=== PATIENT | male | born 1985 | race Caucasian/White ===

== ENCOUNTER 2018-02-19 03:31 | Observation (INO) | payer OTHER ==
[2018-02-19] MEDS ORDERED: CEFAZOLIN 1 GM/D5W RTU 1 GM/50 ML RTUPB IV ONE (04:30)
[2018-02-19] MEDS: DEXTROSE 5%-LACTATED RINGERS 1,000 ML IV PRN ×3 (04:40→20:30)
[2018-02-19] MEDS ORDERED: FENTANYL CITRATE INJ/PF 250 MCG/5 ML AMPULE ONE (05:25)
[2018-02-19] MEDS ORDERED: DEXAMETHASONE SOD PHOSPHATE INJ 4 MG/1 ML VIAL ONE (05:26)
[2018-02-19] MEDS ORDERED: MIDAZOLAM 2 MG/2 ML INJ ONE (05:26)
[2018-02-19] MEDS ORDERED: PROPOFOL INJ 200 MG/20 ML VIAL IV ONE (05:26)
[2018-02-19] MEDS ORDERED: ACETAMINOPHEN 1,000 MG/100 ML RTUPB IV ONE (05:26)
[2018-02-19] MEDS ORDERED: ONDANSETRON HCL INJ/PF 4 MG/2 ML SDV ONE (05:26)
[2018-02-19] MEDS ORDERED: BUPIVACAINE HCL 0.5 % INJ/PF 30 ML SDV ONE (05:30)
--- NOTE | 2018-02-19 05:48 | PDOC H&P ---
History of Present Illness Admission Date/PCP: 02/19/18 03:31 Patient complains of: Abdominal pain History of Present Illness: DAFNE MICHELLE is a 32 year old male Who presents to the emergency department at [facility] in [place] complaining of a 2 day history of abdominal pain localized to the right lower quadrant associated with nausea,anorexia and some loose stool. He denies history of previous episodes, history of trauma or association with anybody else with similar symptoms. The patient was evaluated in the emergency department and found to have right lower quadrant tenderness, and a leukocytosis of 21,000. CT scan of the abdomen and pelvis was performed last night which showed findings consistent with acute appendicitis without rupture. General surgery was consulted the patient was being taken to the operating room it was determined by administration the patient was 100% medically disabled , [facility] the [facility], and could not be operated on for economic reasons at [facility]. Patient was then transferred [facility], accepted by Dr. Xie, and arrangements were made for the operation to be performed at [facility] Past Medical History Past Medical History: Nephrolithiasis, history of renal stents, history of ADD age, hypertension, corneal abrasion Cardiac Medical History: Denies: Congestive Heart Failure, Myocardial Infarction, Hypertension Pulmonary Medical History: Denies: Asthma, Bronchitis, Chronic Obstructive Pulmonary Disease (COPD), Pneumonia, Tuberculosis Neurological Medical History: Denies: Seizures Renal/ Medical History: Denies: End Stage Renal Disease GI Medical History: Reports: Gastroesophageal Reflux Disease Denies: Cirrhosis Musculoskeltal Medical History: Reports: Arthritis - osteo Psychiatric Medical History: Reports: Depression Denies: Bipolar Disorder Hematology: Denies: Anemia, Bleeding Tendencies Past Surgical History Past Surgical History: History of colonoscopy, back surgery, left ureteral stent Social History Smoking Status: Current Every Day Smoker Hx Recreational Drug Use: No Drugs: None - Advance Directive Resuscitation Status: Full Code Family History Parental Family History Reviewed: Yes Children Family History Reviewed: Yes Sibling(s) Family History Reviewed.: Yes Medication/Allergy Allergies/Adverse Reactions: No Known Allergies Allergy (Unverified 02/19/18 04:41) Review of Systems Constitutional: PRESENT: as per HPI Eyes: ABSENT: visual disturbances Ears: ABSENT: hearing changes Cardiovascular: ABSENT: chest pain, dyspnea on exertion, edema, orthropnea, palpitations Respiratory: ABSENT: cough, hemoptysis Gastrointestinal: PRESENT: as per HPI Musculoskeletal: PRESENT: other - Chronic back ailments Endocrine: ABSENT: cold intolerance, heat intolerance, polydipsia, polyuria Physical Exam Vital Signs: Temp Pulse Resp BP Pulse Ox 99.0 F 74 20 126/89 H 97 02/19/18 03:47 02/19/18 03:47 02/19/18 03:47 02/19/18 03:47 02/19/18 03:47 General appearance: PRESENT: no acute distress Head exam: PRESENT: normocephalic Eye exam: PRESENT: EOMI Mouth exam: PRESENT: dry mucosa Neck exam: PRESENT: full ROM Respiratory exam: PRESENT: clear to auscultation angel Cardiovascular exam: PRESENT: RRR Pulses: PRESENT: normal carotid pulses, normal radial pulses, normal dorsalis pedis pul. ABSENT: normal femoral pulses GI/Abdominal exam: PRESENT: guarding, other - Exquisite tenderness right lower quadrant with guarding Rectal exam: PRESENT: deferred Extremities exam: PRESENT: full ROM Musculoskeletal exam: PRESENT: full ROM Neurological exam: PRESENT: alert, awake, oriented to person, oriented to place , oriented to time, oriented to situation Psychiatric exam: PRESENT: appropriate affect Assessment & Plan - Diagnosis (1) Acute appendicitis Is this a current diagnosis for this admission?: Yes Plan: Impression: Acute appendicitis in medically disabled 32-year-old male Recommendations: 1. Admit, IV fluids, IV antibiotics 2. Proceed with laparoscopic, possible open appendectomy, 1 hour, [facility], general anesthesia; risk benefits of the planned procedure explained to the patient including bleeding, infection, need for additional surgery, need for drain, injury to internal organs. (2) Hypertension Is this a current diagnosis for this admission?: Yes (3) ADD (attention deficit disorder) Is this a current diagnosis for this admission?: Yes (4) Previous back surgery Is this a current diagnosis for this admission?: Yes (5) Ureteral stent displacement Is this a current diagnosis for this admission?: Yes - Time Time Spent: 50 to 70 Minutes Critical Time spent with patient: 15-24 minutes Medications reviewed and adjusted accordingly: Yes Anticipated discharge: Home - Inpatient Certification Based on my medical assessment, after consideration of the patient's comorbidities, presenting symptoms, or acuity I expect that the services needed warrant INPATIENT care.: Yes I certify that my determination is in accordance with my understanding of Medicare's requirements for reasonable and necessary INPATIENT services [42 CFR 412.3e].: Yes Medical Necessity: Need For IV Fluids, Need for Pain Control, Need for IV Antibiotics, Need for Surgery
[2018-02-19] MEDS ORDERED: FENTANYL CITRATE INJ/PF 100 MCG/2 ML AMPUL IV PRN ×3 (06:17)
[2018-02-19] MEDS ORDERED: DIPHENHYDRAMINE HCL 50 MG/ML VIAL IV PRN (06:17)
[2018-02-19] MEDS ORDERED: PROMETHAZINE HCL INJ 25 MG/1 ML VIAL IV PRN ×2 (06:17)
[2018-02-19] MEDS ORDERED: OXYCODONE-ACETAMINOPHEN 5-325 MG TABLET PO PRN ×3 (06:17→06:55)
[2018-02-19] MEDS ORDERED: MEPERIDINE HCL/PF INJ 25 MG/1 ML DISP.SYRIN IV PRN (06:17)
[2018-02-19] MEDS ORDERED: MORPHINE SULFATE 10 MG/ML INJ IV PRN (06:17)
[2018-02-19] MEDS: FENTANYL CITRATE INJ/PF 100 MCG/2 ML AMPUL ONE ×2 (06:45→06:50)
[2018-02-19] MEDS ORDERED: ONDANSETRON HCL INJ/PF 4 MG/2 ML SDV IV PRN (06:55)
--- NOTE | 2018-02-19 07:00 | Operative Report ---
Operative Report DATE OF SURGERY: 02/19/18 PREOPERATIVE DIAGNOSIS: Acute appendicitis POSTOPERATIVE DIAGNOSIS: Same OPERATION: Laparoscopic appendectomy SURGEON: MALICK REED ANESTHESIA: GA TISSUE REMOVED OR ALTERED: Appendix COMPLICATIONS: No complications ESTIMATED BLOOD LOSS: Scant INTRAOPERATIVE FINDINGS: Below PROCEDURE: Patient was taken to the preop holding area the main operating where general anesthesia was used. Patient had voided prior to the induction of anesthesia. The abdomen was exposed, prepped draped sterile fashion. Surgical plan surgical timeout conducted Instrumentation was set up for laparoscopic appendectomy. Skin was anesthetized for 3 port approach. A supraumbilical vertical incision was made with a 15 blade, Veress needle inserted the peritoneal cavity pneumoperitoneum was established. Veress needle was removed, 5 mm ports inserted a 5 mm flexible scope was inserted. Under direct visualization 2 additional ports were placed one 5 mm suprapubic position and a 12 mm left lower quadrant. Findings were significant for an acute, retrocecal appendix without perforation. Photos were taken. Grasper was placed on the appendix, and the attachment between the lateral pelvic wall and the appendix opened up with scissors and electrocautery. The mesoappendix was taken down with electrocautery. The appendix was suspended at its base. Photos were taken. The appendix was amputated with a single firing of a 35 mm Endo ABEL blue load stapler. Tenex was removed from the patient to the left lower quadrant 12 mm port. We returned the peritoneal cavity checked for bleeding there was none. Sponge and needle counts were correct. All ports removed under direct visualization, pneumoperitoneum evacuated, and wounds closed with 0 Vicryl 3-0 Vicryl benzoin and Steri-Strips. Patient tolerated the procedure well, extubated, taken recovery room in stable condition.
[2018-02-19] MEDS ORDERED: NEOSTIGMINE METHYLSULFATE 10 MG/10 ML VIAL ONE (09:55)
[2018-02-19] MEDS ORDERED: SUCCINYLCHOLINE CHLORIDE INJ 200 MG/10 ML VIAL ONE (09:55)
[2018-02-19] MEDS ORDERED: GLYCOPYRROLATE 1 MG/5 ML SYRINGE ONE (09:55)
[2018-02-19] MEDS ORDERED: ROCURONIUM BROMIDE INJ 50 MG/5 ML VIAL IV ONE (09:55)
[2018-02-19] MEDS ORDERED: OXYCODONE-ACETAMINOPHEN 5-325 MG TABLET ONE (14:01)
[2018-02-19] MEDS: CEFAZOLIN 2 GM/D5W RTU 2 GM/50 ML RTUPB IV SCH ×2 (14:09→22:25)
[2018-02-19] MEDS: NAPROXEN 250 MG TABLET PO SCH (15:34)
[2018-02-19] MEDS: FAMOTIDINE INJ/PF 20 MG/2 ML SDV IV SCH (15:39)
[2018-02-19] MEDS ORDERED: ACETAMINOPHEN 325 MG TABLET ONE (16:59)
[2018-02-19] MEDS: ACETAMINOPHEN 325 MG TABLET PO SCH (17:20)
[2018-02-20] MEDS: ACETAMINOPHEN 325 MG TABLET PO SCH ×2 (00:06→06:02)
[2018-02-20] MEDS ORDERED: ENOXAPARIN SODIUM INJ 40 MG/0.4 ML DISP.SYRIN SUBCUT SCH (06:00)
[2018-02-20] MEDS: CEFAZOLIN 2 GM/D5W RTU 2 GM/50 ML RTUPB IV SCH (06:02)
[2018-02-20] MEDS: NAPROXEN 250 MG TABLET PO SCH (08:38)
[2018-02-20] MEDS: FAMOTIDINE INJ/PF 20 MG/2 ML SDV IV SCH (09:21)
--- NOTE | 2018-02-20 10:21 | PDOC PROGRESS REPORT ---
Subjective Progress Note for:: 02/20/18 Subjective:: no c/o Reason For Visit: APPENDICITIS Physical Exam Vital Signs: Temp Pulse Resp BP Pulse Ox 98.1 F 57 L 20 124/75 98 02/20/18 09:00 02/20/18 09:00 02/20/18 09:00 02/20/18 09:00 02/20/18 09:00 Intake & Output 02/19/18 02/20/18 02/21/18 06:59 06:59 06:59 Intake Total 1240 4610 50 Output Total 240 2300 Balance 1000 2310 50 Weight 103.9 kg General appearance: PRESENT: no acute distress Respiratory exam: PRESENT: clear to auscultation angel Cardiovascular exam: PRESENT: RRR GI/Abdominal exam: PRESENT: soft, other - all incisions are c/d/i Assessment & Plan - Diagnosis (1) Acute appendicitis Is this a current diagnosis for this admission?: Yes - Plan Summary Plan Summary: A/ POD#1 after lap appy VSS, AF patient tolerating po well PE unremarkable P/ resume diet and all activities without limitations shower only x 2 weeks, than can bathe no wound care needed Tylenol and Aleve as needed OTC for pain Ice pack to wounds prn pain F/u in the Surgery office with BARBIE Radford in 2 weeks
[2018-02-20 10:25] VITALS: BP 112/70
--- NOTE | 2018-02-20 10:50 | DISCHARGE SUMMARY E ---
Discharge Summary NAME: DAFNE MICHELLE : 1985 AGE: 32Y ADMITTED: 02/19/2018 DISCHARGED: 02/20/2018 FINAL DIAGNOSIS: Acute appendicitis, not perforated. PROCEDURE: On February 19 the patient underwent laparoscopic appendectomy. COMPLICATIONS: None. HOSPITAL COURSE: This is a healthy 32-year-old male who presented to the Emergency Room with right upper quadrant pain and found to have an acute appendicitis. The patient underwent a laparoscopic appendectomy on February 19. The procedure was uneventful. He was, therefore, admitted postoperatively. His vital signs remained stable. His diet was advanced to regular and tolerated. His physical exam was unremarkable. On the day of discharge the patient presented with no complaints. Physical exam was unremarkable. Vital signs were within normal limits. All incisions were clean, dry, and intact. DISCHARGE ORDERS: The patient was discharged to home on February 20. He was given a follow-up appointment in the surgery clinic in 2 weeks with the BARBIE Banks. He was given Tylenol and Aleve as needed over the counter for pain, ice packs to the painful abdominal wounds on and off p.r.n. for pain. Activities and diet as tolerated without restrictions. Patient was instructed to shower only for 2 weeks and he can take a bath afterward. DICTATING PHYSICIAN: CHARLOTTE DON M.D. [id number] PHY#: [id number] ID: [id number] JOB#: [id number] ACCT: [id number] cc:CHARLOTTE DON M.D. > MTDD
== END 2018-02-20 10:51 | disposition home or self-care (01) ==
LOC: 2N 03:31
PROVIDERS: ATTEND Surgery
PROC: 0DTJ4ZZ Resection of Appendix, Percutaneous Endoscopic Approach (ICD-10-PCS; principal; 2018-02-19 06:00)
DX: K35.80 Unspecified acute appendicitis (principal); F17.200 Nicotine dependence, unspecified, uncomplicated; I10 Essential (primary) hypertension; F98.8 Other specified behavioral and emotional disorders with onset usually occurring in childhood and adolescence; T83.123A Displacement of other urinary stents, initial encounter; Z98.890 Other specified postprocedural states; Z87.442 Personal history of urinary calculi
CPT/HCPCS: 44970; G0378 ×2; G0379; J2250; J3490 ×3; J0690 ×3; J1100; J3010 ×2; J0330; J2405; J2704; S0028 ×2; J0131; 840

== ENCOUNTER 2019-03-08 18:49 | Emergency (ER) | payer OTHER ==
--- NOTE | 2019-03-08 19:44 | EKG REPORT ---
SEVERITY:- NORMAL ECG - SINUS RHYTHM : Confirmed by: Jayla Scott MD 08-Mar-2019 19:44:02
--- NOTE | 2019-03-08 20:23 | ER Document Report ---
ED Medical Screen (RME) - General Chief Complaint: Chest Pain Stated Complaint: CHEST PAIN Time Seen by Provider: 03/08/19 20:14 Notes: Patient is a 33-year-old male with a history of fibromyalgia, chronic leg and back pain, acid reflux who presents to the emergency department with a chief complaint of chest pain. Patient states he has had intermittent chest pain for the past few years. Patient reports today around noon he had pain located in the center of his chest that was a constant aching. Patient reports that this was different from his normal. Patient states in the past he has been worked up for heart problems but was told that it was acid reflux. Patient reports he does have a history of acid reflux and that this does not feel the same. Patient reports he only takes acid reflux medications as needed. Patient reports he has felt lightheaded and dizzy. Patient reports he is also had trouble sleeping and has been having more frequent nightmares and sweating at night. Patient reports he does have a history of depression and anxiety but is not currently taking medications. Patient reports he is very sensitive to heat and as soon as he steps outside he begins to profusely sweat. Patient reports that at times he will go throughout the whole day without urinating. TRAVEL OUTSIDE OF THE [place] IN LAST 30 DAYS: No - Related Data Allergies/Adverse Reactions: No Known Allergies Allergy (Unverified 02/19/18 04:41) Past Medical History - Past Medical History Cardiac Medical History: Denies: Hx Congestive Heart Failure, Hx Heart Attack, Hx Hypertension Pulmonary Medical History: Denies: Hx Asthma, Hx Bronchitis, Hx COPD, Hx Pneumonia, Hx Tuberculosis Neurological Medical History: Denies: Hx Seizures Renal/ Medical History: Reports: Hx Kidney Stones - twice 2016 & 2017. Denies: Hx Benign Prostatic Hyperplasia, Hx End Stage Renal Disease GI Medical History: Reports: Hx Gastroesophageal Reflux Disease. Denies: Hx Cirrhosis, Hx Ulcer Musculoskeltal Medical History: Reports Hx Arthritis - osteo, Denies Hx Multiple Sclerosis Psychiatric Medical History: Reports: Hx Depression Denies: Hx Bipolar Disorder, Hx Schizophrenia - Immunizations History of Influenza Vaccine for 03/2017 - 08/2017 Season: Yes Influenza Administration Date for 03/2017 - 08/2017 Season: 03/25/17 Physical Exam - Vital signs Vitals: Temp Pulse Resp BP Pulse Ox 98.9 F 83 16 153/88 H 97 03/08/19 19:11 03/08/19 19:11 03/08/19 19:11 03/08/19 19:11 03/08/19 19:11 - Respiratory Respiratory status: No respiratory distress Chest status: Nontender Breath sounds: Normal Chest palpation: Normal - Cardiovascular Rhythm: Regular Heart sounds: Normal auscultation, S1 appreciated, S2 appreciated Course - Re-evaluation Re-evalutation: 03/08/19 20:23 I have greeted and performed a rapid initial assessment of this patient. A comprehensive ED assessment and evaluation of the patient, analysis of test results and completion of the medical decision making process will be conducted by additional ED providers. - Vital Signs Vital signs: Temp Pulse Resp BP Pulse Ox 98.9 F 83 16 153/88 H 97 03/08/19 19:11 03/08/19 19:11 03/08/19 19:11 03/08/19 19:11 03/08/19 19:11
[2019-03-08 21:05] LABS: ABSOLUTE BASOPHILS # (AUTO) 0.1 10^3/uL (0.0-0.2); ABSOLUTE EOSINOPHILS # (AUTO) 0.3 10^3/uL (0.0-0.6); ABSOLUTE LYMPHOCYTES (AUTO) 3.3 10^3/uL (0.5-4.7); ABSOLUTE MONOCYTES (AUTO) 0.8 10^3/uL (0.1-1.4); ABSOLUTE NEUT (AUTO) 6.6 10^3/uL (1.7-8.2); BASOPHILS % (AUTO) 0.7 % (0-2); EOSINOPHILS % (AUTO) 2.9 % (0-6); HEMATOCRIT 50.2 % (37.9-51.0); HEMOGLOBIN 17.6 g/dL (13.5-17.0); LYMPHOCYTES % (AUTO) 29.8 % (13-45); MEAN CORPUSCULAR HEMOGLOBIN 31.4 pg (27.0-33.4); MEAN CORPUSCULAR HGB CONC 35.1 g/dL (32.0-36.0); MEAN CORPUSCULAR VOLUME 89 fl (80-97); PLATELET COUNT 274 10^3/uL (150-450); RED BLOOD COUNT 5.62 10^6/uL (4.35-5.55); RED CELL DISTRIBUTION WIDTH 12.9 % (11.5-14.0); SEGMENTED NEUTROPHILS % (AUTO) 59.6 % (42-78); TOTAL CELLS COUNTED % (AUTO) 100 %; WHITE BLOOD COUNT 11.1 10^3/uL (4.0-10.5)
[2019-03-08 21:15] LABS: APPEARANCE,URINE CLEAR; BILIRUBIN,URINE NEGATIVE (NEGATIVE); COLOR,URINE AMBER; GLUCOSE, URINE NEGATIVE (NEGATIVE); KETONES,URINE NEGATIVE (NEGATIVE); LEUKOCYTE ESTERASE,URINE NEGATIVE (NEGATIVE); NITRITE,URINE NEGATIVE (NEGATIVE); PROTEIN,URINE 30 mg/dL (NEGATIVE); URINE SPECIFIC GRAVITY 1.029
--- NOTE | 2019-03-08 21:24 | RADIOLOGY REPORT (SQ) ---
XR CHEST 2 VIEWS EXAM DATE: 03/08/2019 8:21 PM CDT HISTORY: Chest pain. COMPARISON: None. FINDINGS: The heart size is within normal limits. No consolidation, pleural effusion, or pneumothorax is seen. The bony thorax is intact. IMPRESSION: No evidence of acute cardiopulmonary disease.
[2019-03-08 21:27] LABS: ALBUMIN 4.7 g/dL (3.5-5.0); ALKALINE PHOSPHATASE 69 U/L (38-126); ANION GAP 12 (5-19); ASPARTATE AMINO TRANSFERASE 28 U/L (17-59); BILIRUBIN,DIRECT 0.1 mg/dL (0.0-0.4); BILIRUBIN,TOTAL 0.7 mg/dL (0.2-1.3); BLOOD UREA NITROGEN 14 mg/dL (7-20); CALCIUM 10.4 mg/dL (8.4-10.2); CARBON DIOXIDE 28 mmol/L (22-30); CHLORIDE 102 mmol/L (98-107); CREATINE KINASE 57 U/L (55-170); GLUCOSE 106 mg/dL (75-110); POTASSIUM 4.2 mmol/L (3.6-5.0); TOTAL PROTEIN 7.5 g/dL (6.3-8.2)
--- NOTE | 2019-03-08 22:48 | ER Document Report ---
ED Cardiac - General Chief Complaint: Chest Pain Stated Complaint: CHEST PAIN Time Seen by Provider: 03/08/19 20:14 Mode of Arrival: Ambulatory Information source: Patient Notes: Patient is a 33-year-old male with a history of fibromyalgia, chronic leg and back pain, acid reflux who presents to the emergency department with a chief complaint of chest pain. Patient states he has had intermittent chest pain for the past few years. Patient reports today around noon he had pain located in th e center of his chest that was a constant aching. Patient reports that this was different from his normal. Patient states in the past he has been worked up for heart problems but was told that it was acid reflux. Patient reports he does have a history of acid reflux and that this does not feel the same. Patient reports he only takes acid reflux medications as needed. Patient reports he has felt lightheaded and dizzy. Patient reports he is also had trouble sleeping and has been having more frequent nightmares and sweating at night. Patient reports he does have a history of depression and anxiety but is not currently taking medications. Patient reports he is very sensitive to heat and as soon as he steps outside he begins to profusely sweat. Patient reports that at times he will go throughout the whole day without urinating. TRAVEL OUTSIDE OF THE [place] IN LAST 30 DAYS: No History of Present Illness Chief Complaint: Chest pain 33 years old male presents today with substernal /epigastric pain since 1130 this morning. He came around to the ED around 7:00. Currently the pain is subsided. Which was nonradiating not associated with any nausea vomiting palpitation or diaphoresis. He is a smoker, he states that his father at 45 of massive [place], his uncle also at young age. He has hyperlipidemia. Had not had any stress test. History obtained from patient Symptoms began: Today Onset: Gradual Timing: Constant, now gone Quality: "pain" Intensity: Moderate Location: Substernal Radiation: None Migration: None Aggravating factors: None Relieving factors: None Major PE risk factors: None Major aortic dissection risk factors: None Review of Systems: All other systems negative as reviewed. CONSTITUTIONAL No fever, No chills, No sweats. EYES No eye pain. ENT No URI symptoms, No sore throat, No ear pain. CARDIOVASCULAR + chest pain, No palpitations, No edema. RESPIRATORY No Cough, No SOB, No wheezing. GASTROINTESTINAL No abdominal pain, No nausea, No diarrhea, No vomiting, No GI Bleeding. GENITOURINARY No UTI symptoms. MUSCULOSKELETAL No back pain, No calf swelling, No calf pain. SKIN No Rash. NEUROLOGIC No Headache Physical Exam CONSTITUTIONAL Vital signs reviewed, Patient appears comfortable, Alert and oriented X 3, Normal stature. HEAD Atraumatic, Normocephalic. EYES Eyes are normal to inspection, No discharge from eyes, Extraocular muscles intact, Sclera are normal, Conjunctiva are normal. ENT Ears normal to inspection, Nose examination normal, Posterior pharynx normal, Mouth normal to inspection. NECK Normal ROM, No jugular venous distention, No meningeal signs, no carotid bruit. RESPIRATORY CHEST Chest is nontender, Breath sounds normal, No respiratory distress. CARDIOVASCULAR RRR, No murmurs, Normal S1 S2, No rub, No gallop. ABDOMEN Abdomen is nontender, No pulsatile masses, No other masses, Bowel sounds normal, No distension, No peritoneal signs, No hernias. BACK There is no CVA Tenderness, There is no tenderness to palpation, Normal inspection. UPPER EXTREMITY Inspection normal, No cyanosis, No clubbing, No edema, 2+ radial pulses. LOWER EXTREMITY Inspection normal, No cyanosis, No clubbing, No edema, No calf tenderness, 2+ femoral pulses. NEURO No focal motor deficits, No focal sensory deficits, Speech normal. SKIN Skin is warm, Skin is dry, Skin is normal color. LYMPHATIC No adenopathy in neck. PSYCHIATRIC Normal affect. TRAVEL OUTSIDE OF THE [place] IN LAST 30 DAYS: No - HPI Notes: Dictated - Related Data Allergies/Adverse Reactions: NSAIDS (Non-Steroidal Anti-Inflamma Adverse Reaction (Verified 03/09/19 02:43) GI upset Past Medical History - Social History Smoking Status: Current Some Day Smoker Chew tobacco use (# tins/day): Yes Frequency of alcohol use: Rare Drug Abuse: Marijuana Family History: Reviewed & Not Pertinent Patient has suicidal ideation: No Patient has homicidal ideation: No - Past Medical History Cardiac Medical History: Denies: Hx Congestive Heart Failure, Hx Heart Attack, Hx Hypertension Pulmonary Medical History: Denies: Hx Asthma, Hx Bronchitis, Hx COPD, Hx Pneumonia, Hx Tuberculosis Neurological Medical History: Denies: Hx Seizures Renal/ Medical History: Reports: Hx Kidney Stones - twice 2016 & 2017. Denies: Hx Benign Prostatic Hyperplasia, Hx End Stage Renal Disease GI Medical History: Reports: Hx Gastroesophageal Reflux Disease. Denies: Hx Cirrhosis, Hx Ulcer Musculoskeletal Medical History: Reports Hx Arthritis - osteo, Denies Hx Multiple Sclerosis Psychiatric Medical History: Reports: Hx Depression Denies: Hx Bipolar Disorder, Hx Schizophrenia Review of Systems - Review of Systems Notes: Dictated Physical Exam - Vital signs Vitals: Temp Pulse Resp BP Pulse Ox 98.9 F 83 16 153/88 H 97 03/08/19 19:11 03/08/19 19:11 03/08/19 19:11 03/08/19 19:11 03/08/19 19:11 - Notes Notes: Dictated Course - Re-evaluation Re-evalutation: 03/09/19 02:40 2 sets of enzymes came back negative - Vital Signs Vital signs: Temp Pulse Resp BP Pulse Ox 98.1 F 83 17 126/85 H 97 03/09/19 02:31 03/08/19 19:11 03/09/19 02:31 03/09/19 02:31 03/09/19 02:31 - Laboratory Result Diagrams: 03/08/19 20:34 03/08/19 20:34 Laboratory results interpreted by me: 03/08/19 03/08/19 03/08/19 20:34 20:34 20:34 WBC 11.1 H RBC 5.62 H Hgb 17.6 H Calcium 10.4 H Urine Protein 30 H Urine Urobilinogen 4.0 H - Diagnostic Test Radiology reviewed: Reports reviewed - Chest x-ray reported by radiologist as unremarkable - EKG Interpretation by Me EKG shows normal: Sinus rhythm - Sinus rhythm at a rate of 90 bpm normal axis no acute ST elevation ST depression T wave inversion noted. Discharge - Discharge Clinical Impression: Chest wall pain Condition: Fair Disposition: HOME, SELF-CARE Instructions: Chest Wall Pain ([facility]) Prescriptions: Hydrocodone/Acetaminophen [[place] 5-325 mg Tablet] 1 tab PO TID #6 tablet
[2019-03-08] MEDS ORDERED: HYDROCODONE/ACETAMINOPHEN 10-325 MG TABLET PO ONE (23:04)
[2019-03-09] MEDS ORDERED: KETOROLAC TROMETHAMINE 60 MG/2 ML SDV IM ONE (00:01)
[2019-03-09 02:38] VITALS: BP 126/85
== END 2019-03-09 02:50 | disposition home or self-care (01) ==
LOC: ER 18:49
DX: R07.89 Other chest pain (principal); R10.13 Epigastric pain; R42 Dizziness and giddiness; F51.5 Nightmare disorder; R61 Generalized hyperhidrosis; F17.200 Nicotine dependence, unspecified, uncomplicated; F12.10 Cannabis abuse, uncomplicated; Z82.49 Family history of ischemic heart disease and other diseases of the circulatory system
CPT/HCPCS: 93005; 99285; 96374; 36415; 82550; 85025; 80053; 81001; 84484; 71046; 93010; J1885

== ENCOUNTER 2019-04-08 20:51 | Emergency (ER) | payer OTHER ==
--- NOTE | 2019-04-08 21:13 | ER Document Report ---
ED Medical Screen (RME) - General Chief Complaint: Chest Pain Stated Complaint: CHEST PAIN,LEFT ARM TINGLING Time Seen by Provider: 04/08/19 21:03 Notes: Patient is a 34-year-old male who presents to the emergency department with a chief complaint of back pain. past medical history includes fibromyalgia, chronic leg and back pain, and GERD. Patient states that he has had his symptoms for the past few days and was recently placed on Vyvanse. Patient states that he sometimes takes baclofen for the pain. Today he noticed some left arm tingling. Exam: S1, S2. Lung sounds clear throughout all lung jorgensen. Twelve-lead EKG shows sinus rhythm. I have greeted and performed a rapid initial assessment of this patient. A comprehensive ED assessment and evaluation of the patient, analysis of test results and completion of medical decision making process will be conducted by an additional ED providers. TRAVEL OUTSIDE OF THE [place] IN LAST 30 DAYS: No - Related Data Allergies/Adverse Reactions: NSAIDS (Non-Steroidal Anti-Inflamma Adverse Reaction (Verified 03/09/19 02:43) GI upset Past Medical History - Social History Frequency of alcohol use: None Drug Abuse: None - Past Medical History Cardiac Medical History: Denies: Hx Congestive Heart Failure, Hx Heart Attack, Hx Hypertension Pulmonary Medical History: Denies: Hx Asthma, Hx Bronchitis, Hx COPD, Hx Pneumonia, Hx Tuberculosis Neurological Medical History: Denies: Hx Seizures, Hx Parkinson's Disease Renal/ Medical History: Reports: Hx Kidney Stones - twice 2016 & 2017. Denies: Hx Benign Prostatic Hyperplasia, Hx End Stage Renal Disease GI Medical History: Reports: Hx Gastroesophageal Reflux Disease. Denies: Hx Cirrhosis, Hx Ulcer Musculoskeltal Medical History: Reports Hx Arthritis - osteo, Denies Hx Multiple Sclerosis Psychiatric Medical History: Reports: Hx Depression Denies: Hx Bipolar Disorder, Hx Schizophrenia Past Surgical History: Reports: Hx Appendectomy
--- NOTE | 2019-04-08 21:36 | EKG REPORT ---
SEVERITY:- NORMAL ECG - SINUS RHYTHM : Confirmed by: Avni Mahan 08-Apr-2019 21:36:09
[2019-04-08] MEDS ORDERED: ACETAMINOPHEN 325 MG TABLET PO ONE (21:48)
[2019-04-08 22:07] LABS: ABSOLUTE EOSINOPHILS # (AUTO) 0.2 10^3/uL (0.0-0.6); ABSOLUTE LYMPHOCYTES (AUTO) 2.6 10^3/uL (0.5-4.7); ABSOLUTE MONOCYTES (AUTO) 0.5 10^3/uL (0.1-1.4); ABSOLUTE NEUT (AUTO) 8.2 10^3/uL (1.7-8.2); BASOPHILS % (AUTO) 0.2 % (0-2); EOSINOPHILS % (AUTO) 1.3 % (0-6); HEMATOCRIT 49.8 % (37.9-51.0); HEMOGLOBIN 17.7 g/dL (13.5-17.0); LYMPHOCYTES % (AUTO) 22.7 % (13-45); MEAN CORPUSCULAR HEMOGLOBIN 31.7 pg (27.0-33.4); MEAN CORPUSCULAR HGB CONC 35.6 g/dL (32.0-36.0); MEAN CORPUSCULAR VOLUME 89 fl (80-97); MONOCYTES % (AUTO) 4.1 % (3-13); PLATELET COUNT 266 10^3/uL (150-450); RED BLOOD COUNT 5.59 10^6/uL (4.35-5.55); RED CELL DISTRIBUTION WIDTH 12.5 % (11.5-14.0); SEGMENTED NEUTROPHILS % (AUTO) 71.7 % (42-78); TOTAL CELLS COUNTED % (AUTO) 100 %; WHITE BLOOD COUNT 11.5 10^3/uL (4.0-10.5)
[2019-04-08 22:21] LABS: ALBUMIN 4.8 g/dL (3.5-5.0); ALKALINE PHOSPHATASE 78 U/L (38-126); ANION GAP 11 (5-19); ASPARTATE AMINO TRANSFERASE 29 U/L (17-59); BILIRUBIN,DIRECT 0.2 mg/dL (0.0-0.4); BILIRUBIN,TOTAL 0.8 mg/dL (0.2-1.3); BLOOD UREA NITROGEN 10 mg/dL (7-20); CALCIUM 10.1 mg/dL (8.4-10.2); CARBON DIOXIDE 26 mmol/L (22-30); CHLORIDE 102 mmol/L (98-107); CREATINE KINASE 58 U/L (55-170); GLUCOSE 108 mg/dL (75-110); POTASSIUM 4.1 mmol/L (3.6-5.0); TOTAL PROTEIN 7.7 g/dL (6.3-8.2)
[2019-04-08 22:32] LABS: CREATINE KINASE MB 0.61 ng/mL (<4.55); TROPONIN I < 0.012 ng/mL
--- NOTE | 2019-04-08 22:42 | RADIOLOGY REPORT (SQ) ---
Chest single view on 04/08/2019 at 10:22 PM CLINICAL INDICATION: Chest pain COMPARISON: 03/08/2019 FINDINGS: The lungs are clear. Cardiac, hilar and mediastinal contours are within normal limits. Pulmonary vascularity is within normal limits. No bony abnormality is noted. IMPRESSION: No active disease.
[2019-04-08] MEDS ORDERED: TRAMADOL HCL 50 MG TABLET PO ONE (23:36)
--- NOTE | 2019-04-08 23:55 | ER Document Report ---
ED General - General Chief Complaint: Chest Pain Stated Complaint: CHEST PAIN,LEFT ARM TINGLING Time Seen by Provider: 04/08/19 21:03 Primary Care Provider: BRIAN,NELSON [Primary Care Provider] - Follow up as needed TRAVEL OUTSIDE OF THE [place] IN LAST 30 DAYS: No - HPI Notes: This is a 34-year-old gentleman who presents today with a complaint of generalized body pain. Patient also states that he did have some midsternal chest pain earlier this afternoon so he was concerned and that is why he came to the emergency department. He does not have any chest pain now but has pain in his joints. Patient notes that he has had multiple episodes of chest pain, and just generalized body aches for the past several years. He has been seen for these several times. He states that he left the because of all these symptoms. He showed me a notebook in which he has different entries of pain in the different parts of his body at different times. He denies any dyspnea. He denies any recent travel. Describes symptoms as moderate. There are no obvious aggravating or relieving factors. He feels stressed but denies any added stress recently. - Related Data Allergies/Adverse Reactions: NSAIDS (Non-Steroidal Anti-Inflamma Adverse Reaction (Verified 03/09/19 02:43) GI upset Past Medical History - Social History Smoking Status: Unknown if Ever Smoked Frequency of alcohol use: None Drug Abuse: None Family History: Reviewed & Not Pertinent Patient has suicidal ideation: No Patient has homicidal ideation: No - Past Medical History Cardiac Medical History: Denies: Hx Congestive Heart Failure, Hx Heart Attack, Hx Hypertension Pulmonary Medical History: Denies: Hx Asthma, Hx Bronchitis, Hx COPD, Hx Pneumonia, Hx Tuberculosis Neurological Medical History: Denies: Hx Seizures, Hx Parkinson's Disease Renal/ Medical History: Reports: Hx Kidney Stones - twice 2016 & 2017. Denies: Hx Benign Prostatic Hyperplasia, Hx End Stage Renal Disease GI Medical History: Reports: Hx Gastroesophageal Reflux Disease. Denies: Hx Cirrhosis, Hx Ulcer Musculoskeletal Medical History: Reports Hx Arthritis - osteo, Denies Hx Multiple Sclerosis Psychiatric Medical History: Reports: Hx Depression Denies: Hx Bipolar Disorder, Hx Schizophrenia Past Surgical History: Reports: Hx Appendectomy Review of Systems - Review of Systems Constitutional: denies: Fever Cardiovascular: Chest pain Gastrointestinal: denies: Abdominal pain, Diarrhea, Nausea Musculoskeletal: Joint pain, Muscle pain. denies: Joint swelling Neurological/Psychological: denies: Headaches -: Yes All other systems reviewed and negative Physical Exam - Vital signs Vitals: Pulse Ox 98 04/08/19 22:36 - General General appearance: Appears well, Alert - Respiratory Respiratory status: No respiratory distress Chest status: Tender - The subxiphoid and midsternal tenderness to palpation. Breath sounds: Normal Chest palpation: Normal - Cardiovascular Rhythm: Regular Heart sounds: Normal auscultation Murmur: No - Abdominal Inspection: Normal Distension: No distension Bowel sounds: Normal Tenderness: Nontender Organomegaly: No organomegaly - Back Back: Normal, Nontender - Extremities General upper extremity: Normal inspection, Nontender, Normal color, Normal ROM, Normal temperature General lower extremity: Normal inspection, Nontender, Normal color, Normal ROM, Normal temperature, Normal weight bearing. No: Liv's sign - Neurological Neuro grossly intact: Yes Cognition: Normal Orientation: AAOx4 Kathy Coma Scale Eye Opening: Spontaneous Scarbro Coma Scale Verbal: Oriented Kathy Coma Scale Motor: Obeys Commands Scarbro Coma Scale Total: 15 Speech: Normal Motor strength normal: LUE, RUE, LLE, RLE Sensory: Normal - Psychological Associated symptoms: Normal mood, Flat affect - Skin Skin Temperature: Warm Skin Moisture: Dry Skin Color: Normal Course - Re-evaluation Re-evalutation: 04/08/19 23:54 Differential diagnosis includes generalized body aches versus fibromyalgia versus chest wall pain versus GERD. There is no clinical suspicion for acute coronary syndrome and is 34 years old patient with atypical chest pain greater than 12 hours. EKG shows normal sinus rhythm at 93 bpm. Normal axis. Normal intervals. Normal EKG. 04/09/19 00:43 Patient reevaluated. Patient is doing well. Labs and imaging reviewed and dis cussed. Heart score is 1. He is stable for discharge. Follow-up instructions given. - Vital Signs Vital signs: Temp Pulse Resp BP Pulse Ox 23 H 131/96 H 98 04/08/19 23:01 04/08/19 23:01 04/08/19 23:01 - Laboratory Result Diagrams: 04/08/19 21:40 04/08/19 21:40 Laboratory results interpreted by me: 04/08/19 21:40 WBC 11.5 H RBC 5.59 H Hgb 17.7 H Discharge - Discharge Clinical Impression: Atypical chest pain, Myalgia Condition: Stable Disposition: HOME, SELF-CARE Instructions: Chest Pain of Unclear Cause ([facility]), Chest Wall Pain ([facility]), Myalagia (Muscle Pain) ([facility]) Prescriptions: Tramadol HCl [Ultram 50 mg Tablet] 50 mg PO Q6HP PRN #20 tablet PRN Reason: Pain Scale Of 3 [facility]errals: [facility] [Primary Care [facility]] - Follow up in 3-5 days (Call to schedule follow-up appointment.)
[2019-04-09 01:14] VITALS: BP 134/83
== END 2019-04-09 01:14 | disposition home or self-care (01) ==
LOC: ER 20:51
DX: R07.89 Other chest pain (principal); M79.10 Myalgia, unspecified site; R20.0 Anesthesia of skin
CPT/HCPCS: 36415; 71045; 80053; 82550; 82553; 83735; 84484; 85025; 93005; 93010; 99284

== ENCOUNTER 2019-12-13 16:06 | Emergency (ER) | payer OTHER ==
[2019-12-13] MEDS ORDERED: ONDANSETRON HCL INJ/PF 4 MG/2 ML SDV IV ONE (17:23)
[2019-12-13] MEDS ORDERED: MORPHINE SULFATE 10 MG/ML INJ IV ONE (17:24)
--- NOTE | 2019-12-13 17:28 | ER Document Report ---
ED GI/ - General Chief Complaint: Abdominal Pain Stated Complaint: ABDOMINAL PAIN Time Seen by Provider: 12/13/19 17:17 Primary Care Provider: MIKAELA BAUER MD [ACTIVE STAFF] - Follow up as needed [facility] [Primary Care [facility]] - Follow up as needed Notes: CHIEF COMPLAINT: Abdominal pain for 2 weeks HPI: 34-year-old male presenting to the emergency department complaining of a burning sensation in the right upper quadrant as well as generally in the abdomen over the last 2 weeks. Pain is been fairly constant, eating and drinking seem to make the pain better for a short period of time. Patient does have history of bleeding gastritis with NSAID use previously. Patient states he may also have history of diverticulitis but is not specifically sure. Has had no fever. Has had nausea no active vomiting. No blood in the stool. Has taken no other medications for this. ROS: See HPI - all other systems were reviewed and are otherwise negative Constitutional: no fever Eyes: no drainage, no blurred vision ENT: no runny nose, no sore throat Cardiovascular: no chest pain Resp: no SOB, no cough GI: no vomiting, no diarrhea, + abdominal pain, positive nausea : no dysuria Integumentary: no rash Allergy: no hives Musculoskeletal: no extremity pain or swelling Neurological: no numbness/tingling, no weakness MEDICATIONS: I agree with the patient medications as charted by the RN. ALLERGIES: I agree with the allergies as charted by the RN. PAST MEDICAL HISTORY/PAST SURGICAL HISTORY: Reviewed and agree as charted by RN. SOCIAL HISTORY: Reviewed and agree as charted by RN. FAMILY HISTORY: No significant familial comorbid conditions directly related to patient complaint EXAM: Reviewed vital signs as charted by RN. CONSTITUTIONAL: Alert and oriented and responds appropriately to questions. Well-appearing; well-nourished HEAD: Normocephalic; atraumatic EYES: PERRL; Conjunctivae clear, sclerae non-icteric ENT: normal nose; no rhinorrhea; moist mucous membranes; pharynx without lesions noted, no uvula edema or deviation, no tonsillar hypertrophy, phonation normal NECK: Supple without meningismus; non-tender; no cervical lymphadenopathy, no masses CARD: RRR; no murmurs, no clicks, no rubs, no gallops; symmetric distal pulses RESP: Normal chest excursion without splinting or tachypnea; breath sounds clear and equal bilaterally; no wheezes, no rhonchi, no rales, pulse oximetry 97% on room air not hypoxic ABD/GI: Normal bowel sounds; non-distended; soft, mild tenderness in the left lower left upper quadrants on palpation. Mild to moderate tenderness right upper quadrant on palpation, no rebound, no guarding; no palpable organomegaly or masses. BACK: The back appears normal and is non-tender to palpation, there is no CVA tenderness EXT: Normal ROM in all joints; non-tender to palpation; no cyanosis, no effusions, no edema SKIN: Normal color for age and race; warm; dry; good turgor; no acute lesions noted NEURO: Moves all extremities equally; Motor and sensory function intact PSYCH: The patient's mood and manner are appropriate. Grooming and personal hygiene are appropriate. MDM: 34-year-old male presenting with generalized abdominal pain over the last 2 weeks more focal in the right upper quadrant eases with eating prior history of gastritis. Differential is large would include diverticulitis, cholecystitis, gastric ulcer or peptic ulcer. Will obtain screening labs, given the general nature of his abdominal pain initially start with CT imaging to evaluate for diverticulitis or acute changes in the right upper quadrant that might suggest cholecystitis TRAVEL OUTSIDE OF THE [place] IN LAST 30 DAYS: No - Related Data Allergies/Adverse Reactions: NSAIDS (Non-Steroidal Anti-Inflamma Adverse Reaction (Verified 03/09/19 02:43) GI upset Home Medications: Vitamins Past Medical History - Social History Smoking Status: Never Smoker Chew tobacco use (# tins/day): Yes Frequency of alcohol use: Rare Drug Abuse: Marijuana Family History: Reviewed & Not Pertinent - Past Medical History Cardiac Medical History: Denies: Hx Congestive Heart Failure, Hx Heart Attack, Hx Hypertension Pulmonary Medical History: Denies: Hx Asthma, Hx Bronchitis, Hx COPD, Hx Pneumonia, Hx Tuberculosis Neurological Medical History: Denies: Hx Seizures, Hx Parkinson's Disease Renal/ Medical History: Reports: Hx Kidney Stones - twice 2016 & 2017. Denies: Hx Benign Prostatic Hyperplasia, Hx End Stage Renal Disease GI Medical History: Reports: Hx Gastroesophageal Reflux Disease. Denies: Hx Cirrhosis, Hx Ulcer Musculoskeletal Medical History: Reports Hx Arthritis - osteo, Denies Hx Multiple Sclerosis Psychiatric Medical History: Reports: Hx Depression Denies: Hx Bipolar Disorder, Hx Schizophrenia Past Surgical History: Reports: Hx Appendectomy Physical Exam - Vital signs Vitals: Temp Pulse Resp BP Pulse Ox 98.7 F 84 14 150/107 H 98 12/13/19 16:10 12/13/19 16:10 12/13/19 16:10 12/13/19 16:10 12/13/19 16:10 Course - Re-evaluation Re-evalutation: 12/13/19 18:30 I discussed evaluation results at length with the patient. No acute findings on CT, lab work does not show specific acute emergent abnormalities that are actionable tonight. Patient states he will be in town for approximately 2 weeks. He is for [place] originally and just has a house here. He may choose to follow-up will give him a copy of his CT and lab work to take with him. We will also refer him to GI locally. Patient will be placed on a short course of Carafate, Protonix, very short course of pain medication with return instructions - Vital Signs Vital signs: Temp Pulse Resp BP Pulse Ox 98.8 F 58 L 18 134/90 H 97 12/13/19 18:42 12/13/19 18:42 12/13/19 18:42 12/13/19 18:42 12/13/19 18:42 - Laboratory Result Diagrams: 12/13/19 17:20 12/13/19 17:20 Laboratory results interpreted by me: 12/13/19 17:20 WBC 12.6 H RBC 5.66 H Hgb 18.0 H Discharge - Discharge Clinical Impression: Abdominal pain, acute, generalized Condition: Stable Disposition: HOME, SELF-CARE Additional Instructions: Take the medications as prescribed no driving if taking narcotics for pain. It is imperative that you follow-up closely with gastroenterology for further evaluation and treatment call for appointment. Your lab work and CT imaging did not show acute emergent abnormalities today. A copy of your lab work and imaging studies will be given to you at time of discharge to take with you for follow-up should you choose to go to [place] for your follow-up as discussed. Return for onset of fever vomiting or uncontrolled pain Prescriptions: Sucralfate [Carafate 1 gm Tablet] 1 gm PO ACHS #120 tablet Oxycodone HCl/Acetaminophen [Percocet 5-325 mg Tablet] 1 tab PO Q4H PRN #10 tab PRN Reason: Pantoprazole Sodium [Protonix [address] Tablet] 20 mg PO DAILY #30 tablet. Referrals: [facility] [Primary [facility]] - Follow up as needed MIKAELA BAUER MD [ACTIVE STAFF] - Follow up as needed
[2019-12-13 17:39] LABS: APPEARANCE,URINE CLEAR; BILIRUBIN,URINE NEGATIVE (NEGATIVE); COLOR,URINE STRAW; GLUCOSE, URINE NEGATIVE (NEGATIVE); KETONES,URINE NEGATIVE (NEGATIVE); LEUKOCYTE ESTERASE,URINE NEGATIVE (NEGATIVE); NITRITE,URINE NEGATIVE (NEGATIVE); PROTEIN,URINE NEGATIVE (NEGATIVE); URINE SPECIFIC GRAVITY 1.004; UROBILINOGEN,URINE NEGATIVE mg/dL (<2.0)
[2019-12-13 17:40] LABS: ABSOLUTE BASOPHILS # (AUTO) 0.1 10^3/uL (0.0-0.2); ABSOLUTE EOSINOPHILS # (AUTO) 0.2 10^3/uL (0.0-0.6); ABSOLUTE LYMPHOCYTES (AUTO) 4.1 10^3/uL (0.5-4.7); ABSOLUTE MONOCYTES (AUTO) 0.8 10^3/uL (0.1-1.4); ABSOLUTE NEUT (AUTO) 7.5 10^3/uL (1.7-8.2); BASOPHILS % (AUTO) 0.4 % (0-2); EOSINOPHILS % (AUTO) 1.6 % (0-6); HEMATOCRIT 50.3 % (37.9-51.0); LYMPHOCYTES % (AUTO) 32.3 % (13-45); MEAN CORPUSCULAR HEMOGLOBIN 31.8 pg (27.0-33.4); MEAN CORPUSCULAR HGB CONC 35.9 g/dL (32.0-36.0); MEAN CORPUSCULAR VOLUME 89 fl (80-97); MONOCYTES % (AUTO) 6.5 % (3-13); PLATELET COUNT 278 10^3/uL (150-450); RED BLOOD COUNT 5.66 10^6/uL (4.35-5.55); SEGMENTED NEUTROPHILS % (AUTO) 59.2 % (42-78); TOTAL CELLS COUNTED % (AUTO) 100 %; WHITE BLOOD COUNT 12.6 10^3/uL (4.0-10.5)
[2019-12-13 17:51] LABS: ALBUMIN 4.8 g/dL (3.5-5.0); ALKALINE PHOSPHATASE 78 U/L (38-126); ANION GAP 9 (5-19); ASPARTATE AMINO TRANSFERASE 25 U/L (17-59); BILIRUBIN,TOTAL 0.8 mg/dL (0.2-1.3); BLOOD UREA NITROGEN 13 mg/dL (7-20); CALCIUM 9.9 mg/dL (8.4-10.2); CARBON DIOXIDE 26 mmol/L (22-30); CHLORIDE 102 mmol/L (98-107); GLUCOSE 102 mg/dL (75-110); POTASSIUM 3.8 mmol/L (3.6-5.0); TOTAL PROTEIN 7.7 g/dL (6.3-8.2)
--- NOTE | 2019-12-13 18:23 | RADIOLOGY REPORT (SQ) ---
EXAM DESCRIPTION: CT ABD/PELVIS WITH IV ONLY IMAGES COMPLETED DATE/TIME: 12/13/2019 6:11 pm REASON FOR STUDY: ruq and llq pain COMPARISON: None. TECHNIQUE: CT scan of the abdomen and pelvis performed using helical scanning technique with dynamic intravenous contrast injection. No oral contrast. Images reviewed with lung, soft tissue, and bone windows. Reconstructed coronal and sagittal MPR images reviewed. Delayed images for evaluation of the urinary system also acquired. All images stored on PACS. All CT scanners at this facility use dose modulation, iterative reconstruction, and/or weight based d osing when appropriate to reduce radiation dose to as low as reasonably achievable (ALARA). [facility]: Dose Right [facility]: CareDose [facility]: Dose Right [facility]: Teradose 4D [facility]: Tonchidot CONTRAST TYPE AND DOSE: 100 mL Omnipaque 350- low osmolar. RENAL FUNCTION: None required. The patient is less than 50 years old. RADIATION DOSE: . LIMITATIONS: None. FINDINGS: LOWER CHEST: No significant findings. No nodules or infiltrates. LIVER: Normal size. No masses. No dilated ducts. SPLEEN: Normal size. No focal lesions. PANCREAS: No masses. No significant calcifications. No adjacent inflammation or peripancreatic fluid collections. Pancreatic duct not dilated. GALLBLADDER: No identified stones by CT criteria. No inflammatory changes to suggest cholecystitis. ADRENAL GLANDS: No significant masses or asymmetry. RIGHT KIDNEY AND URETER: No solid masses. No significant calcifications. No hydronephrosis or hyd roureter. LEFT KIDNEY AND URETER: No solid masses. No significant calcifications. No hydronephrosis or hydr oureter. AORTA AND VESSELS: No aneurysm. No dissection. Renal arteries, SMA, celiac without stenosis. RETROPERITONEUM: No retroperitoneal adenopathy, hemorrhage or masses. BOWEL AND PERITONEAL CAVITY: Few, scattered colonic diverticula without focal inflammatory changes. APPENDIX: Surgically absent. PELVIS: No mass. No free fluid. Normal bladder. ABDOMINAL WALL: No masses. No hernias. BONES: No significant or acute findings. OTHER: No other significant finding. IMPRESSION: Status post appendectomy. No evidence of acute intra-abdominal infectious/inflammatory process. TECHNICAL DOCUMENTATION: JOB ID: [id number] Quality ID # [id number]: Final reports with documentation of one or more dose reduction techniques (e.g., Au tomated exposure control, adjustment of the mA and/or kV according to patient size, use of iterative reconstruction technique) 2010 [employer]- All Rights Reserved Reading location - IP/workstation name: [email or web address]
[2019-12-13 18:43] VITALS: BP 134/90
== END 2019-12-13 19:09 | disposition home or self-care (01) ==
LOC: ER 16:06
DX: R10.84 Generalized abdominal pain (principal); R11.0 Nausea; R10.812 Left upper quadrant abdominal tenderness; R10.814 Left lower quadrant abdominal tenderness; F12.10 Cannabis abuse, uncomplicated; Z79.899 Other long term (current) drug therapy; Z87.19 Personal history of other diseases of the digestive system; Z87.442 Personal history of urinary calculi; Z90.49 Acquired absence of other specified parts of digestive tract
CPT/HCPCS: 99284; 96374; 96375; 36415; 83690; 85025; 80053; 81001; 74177; J2270; J2405